=== PATIENT | female | born 1940 | race Caucasian/White ===

== ENCOUNTER 2023-05-31 09:43 | Outpatient (RCR) | payer MEDICARE, OTHER, SELFPAY ==
[2023-05-31] VITALS (9 sets, daily range): BP systolic 107–137; BP diastolic 68–83
[2023-05-31] MEDS: GAMMAGARD 200 IV (10:10)
[2023-05-31] MEDS: GAMMAGARD 300 IV (11:56)
[2023-05-31 23:35] LABS: IgG 854 mg/dl (700-1600)
== END 2023-05-31 15:50 | disposition home or self-care (01) ==
LOC: OID 09:43
PROVIDERS: ATTENDING PHYSICIAN Allergy & Immunology; FAMILY PHYSICIAN Family Medicine
DX: D83.9 Common variable immunodeficiency, unspecified (principal); D83.8 Other common variable immunodeficiencies
CPT/HCPCS: 82784; 96365; 96366; J1569

== ENCOUNTER 2023-06-28 09:51 | Outpatient (RCR) | payer MEDICARE, OTHER, SELFPAY ==
[2023-06-28] VITALS (9 sets, daily range): BP systolic 93–143; BP diastolic 54–72
[2023-06-28] MEDS: GAMMAGARD 200 IV (10:28)
[2023-06-28] MEDS: GAMMAGARD 300 IV (12:05)
[2023-06-29 00:51] LABS: IgG 872 mg/dl (700-1600)
== END 2023-06-29 09:41 | disposition home or self-care (01) ==
LOC: OID 09:51
PROVIDERS: ATTENDING PHYSICIAN Allergy & Immunology; FAMILY PHYSICIAN Family Medicine
DX: D83.8 Other common variable immunodeficiencies (principal); D83.9 Common variable immunodeficiency, unspecified
CPT/HCPCS: 82784; 96365; 96366; J1569

== ENCOUNTER 2023-07-25 10:05 | Outpatient (RCR) | payer MEDICARE, OTHER, SELFPAY ==
[2023-07-25] VITALS (9 sets, daily range): BP systolic 105–141; BP diastolic 53–93
[2023-07-25] MEDS: GAMMAGARD 200 IV (10:34)
[2023-07-25] MEDS: GAMMAGARD 300 IV (12:09)
[2023-07-26 23:39] LABS: IgG 884 mg/dl (700-1600)
== END 2023-07-26 07:52 | disposition home or self-care (01) ==
LOC: OID 10:05
PROVIDERS: ATTENDING PHYSICIAN Allergy & Immunology; FAMILY PHYSICIAN Family Medicine
DX: D83.8 Other common variable immunodeficiencies (principal); D83.9 Common variable immunodeficiency, unspecified
CPT/HCPCS: 82784; 96365; 96366; J1569

== ENCOUNTER 2023-08-22 09:46 | Outpatient (RCR) | payer MEDICARE, OTHER, SELFPAY ==
[2023-08-22] VITALS (9 sets, daily range): BP systolic 116–140; BP diastolic 69–78
[2023-08-22] MEDS: GAMMAGARD 200 IV (10:48)
[2023-08-22 10:58] LABS: % Basophils 0.7 % (0-2); % Monocytes 7.3 % (1.7-9.3); Absolute Basophils 0.1 10^3/uL (0-0.2); Absolute Eosinophils 0.2 10^3/uL (0-0.7); Absolute Lymphocytes 1.8 10^3/uL (1.2-3.4); Absolute Monocytes 0.6 10^3/uL (0.1-0.6); Hematocrit 44.4 % (37.0-47.0); Hemoglobin 15.1 g/dL (12.0-16.0); Mean Corpuscular Hgb 30.8 pg (27.0-31.0); Mean Corpuscular Volume 90.4 fL (81.0-99.0); Mean Platelet Volume 9.9 fL (7.4-10.4); Platelet Count 258 10^3/uL (130-400); Red Blood Cell Count 4.91 10^6/uL (4.20-5.40); Red Cell Dist. Width 13.6 % (11.5-14.5); White Blood Cell Count 7.6 10^3/uL (4.8-10.8)
[2023-08-22] MEDS: GAMMAGARD 300 IV (12:25)
[2023-08-22 13:13] LABS: ALT (SGPT) 14 U/L (0-35); AST (SGOT) 20 U/L (14-36); Albumin 3.3 g/dl (3.5-5.0); Alkaline Phosphatase 69 U/L (38-126); Blood Urea Nitrogen 16 mg/dl (7-17); Calcium 9.4 mg/dl (8.4-10.2); Carbon Dioxide 27 mmol/L (22-30); Chloride 104 mmol/L (98-107); Glucose 84 mg/dl (70-99); Sodium 135 mmol/L (135-145); Total Bilirubin 0.5 mg/dl (0.2-1.3); Total Protein 5.8 g/dl (6.3-8.2); eGFR > 60.00
[2023-08-22 15:05] LABS: HDL Cholesterol 63 mg/dl; LDL Cholesterol, Calculated 88 mg/dl; Total Cholesterol 166 mg/dl (50-199); Triglyceride 76 mg/dl (10-149); Very Low Density Lipoprotein 15 mg/dl (0-30)
[2023-08-24 05:41] LABS: IgG 826 mg/dl (700-1600)
== END 2023-09-14 15:12 | disposition home or self-care (01) ==
LOC: OID 09:46
PROVIDERS: ATTENDING PHYSICIAN Allergy & Immunology; FAMILY PHYSICIAN Family Medicine
DX: D83.8 Other common variable immunodeficiencies (principal); D83.9 Common variable immunodeficiency, unspecified
CPT/HCPCS: 36415; 80053; 80061; 82784; 85025; 96365; 96366; J1569

== ENCOUNTER → 2023-08-28 14:46 | Outpatient (REF) | payer MEDICARE, OTHER, SELFPAY | LOC: HWRAD 14:46 | PROVIDERS: ATTENDING PHYSICIAN Family Medicine | DX: S29.012A Strain of muscle and tendon of back wall of thorax, initial encounter (principal) | CPT/HCPCS: 72072 ==

== ENCOUNTER → 2023-08-29 10:57 | Outpatient (REF) | payer MEDICARE, OTHER, SELFPAY | LOC: HWRAD 10:57 | PROVIDERS: ATTENDING PHYSICIAN Family Medicine | DX: M85.80 Other specified disorders of bone density and structure, unspecified site (principal); M85.89 Other specified disorders of bone density and structure, multiple sites | CPT/HCPCS: 77080 ==

== ENCOUNTER → 2023-09-15 08:28 | Outpatient (REF) | payer MEDICARE, OTHER, SELFPAY | LOC: PAVMRI 08:28 | PROVIDERS: ATTENDING PHYSICIAN Family Medicine | DX: M54.50 Low back pain, unspecified (principal); M54.9 Dorsalgia, unspecified | CPT/HCPCS: 72146 ==

== ENCOUNTER 2023-09-19 09:54 | Outpatient (RCR) | payer MEDICARE, OTHER, SELFPAY ==
[2023-09-19] VITALS (9 sets, daily range): BP systolic 112–140; BP diastolic 68–82
[2023-09-19] MEDS: GAMMAGARD 200 IV (10:30)
[2023-09-19] MEDS: GAMMAGARD 300 IV (12:09)
[2023-09-21 05:55] LABS: IgG 759 mg/dl (700-1600)
== END 2023-09-20 08:37 | disposition home or self-care (01) ==
LOC: OID 09:54
PROVIDERS: ATTENDING PHYSICIAN Allergy & Immunology; FAMILY PHYSICIAN Family Medicine
DX: D83.8 Other common variable immunodeficiencies (principal); D83.9 Common variable immunodeficiency, unspecified
CPT/HCPCS: 36415; 82784; 96365; 96366; J1569

== ENCOUNTER 2023-10-17 09:50 | Outpatient (RCR) | payer MEDICARE, OTHER, SELFPAY ==
[2023-10-17] VITALS (8 sets, daily range): BP systolic 115–133; BP diastolic 58–68
[2023-10-17] MEDS: GAMMAGARD 200 IV (10:34)
[2023-10-17] MEDS: GAMMAGARD 300 IV (12:12)
[2023-10-19 01:39] LABS: IgG 703 mg/dl (700-1600)
== END 2023-11-14 10:29 | disposition home or self-care (01) ==
LOC: OID 09:50
PROVIDERS: Allergy & Immunology; ATTENDING PHYSICIAN Internal Medicine; FAMILY PHYSICIAN Family Medicine
DX: D83.8 Other common variable immunodeficiencies (principal); D83.9 Common variable immunodeficiency, unspecified
CPT/HCPCS: 36415; 82784; 96365; 96366; J1569

== ENCOUNTER 2023-12-13 09:59 | Outpatient (RCR) | payer MEDICARE, OTHER, SELFPAY ==
[2023-11-16] VITALS (9 sets, daily range): BP systolic 112–151; BP diastolic 61–80
[2023-11-16] MEDS: GAMMAGARD 300 IV (11:14)
[2023-11-16 12:19] LABS: IgG 700 mg/dl (700-1600)
[2023-11-16] MEDS: GAMMAGARD 200 IV (13:25)
[2023-12-13] VITALS (10 sets, daily range): BP systolic 117–165; BP diastolic 60–96
[2023-12-13] MEDS: GAMMAGARD 300 IV (10:24)
[2023-12-13] MEDS: GAMMAGARD 200 IV (12:38)
[2023-12-13 23:37] LABS: IgG 709 mg/dl (700-1600)
== END 2023-12-13 15:14 | disposition home or self-care (01) ==
LOC: OID 09:59
PROVIDERS: ATTENDING PHYSICIAN Internal Medicine; FAMILY PHYSICIAN Family Medicine
DX: D83.8 Other common variable immunodeficiencies (principal); D83.9 Common variable immunodeficiency, unspecified
CPT/HCPCS: 82784; 96365; 96366; J1569

== ENCOUNTER → 2023-12-20 11:00 | Outpatient (REF) | payer MEDICARE, OTHER, SELFPAY ==
[2023-12-20 11:51] LABS: % Basophils 0.7 % (0-2); % Eosinophils 4.2 % (0-6); % Immature Granulocytes 0.3 % (0-0.5); % Lymphocytes 23.8 % (20.5-51.1); % Monocytes 6.8 % (1.7-9.3); % Neutrophils 64.2 % (42.2-75.2); Absolute Basophils 0.1 10^3/uL (0-0.2); Absolute Eosinophils 0.3 10^3/uL (0-0.7); Absolute Lymphocytes 1.8 10^3/uL (1.2-3.4); Absolute Monocytes 0.5 10^3/uL (0.1-0.6); Absolute Neutrophils 4.8 10^3/uL (1.4-6.5); Hematocrit 43.1 % (37.0-47.0); Hemoglobin 14.7 g/dL (12.0-16.0); Mean Corp Hgb Conc. 34.1 g/dL (33.0-37.0); Mean Corpuscular Hgb 30.2 pg (27.0-31.0); Mean Corpuscular Volume 88.5 fL (81.0-99.0); Mean Platelet Volume 10.6 fL (7.4-10.4); Nucleated Red Blood Cells % 0 %; Platelet Count 249 10^3/uL (130-400); Red Blood Cell Count 4.87 10^6/uL (4.20-5.40); Red Cell Dist. Width 14.1 % (11.5-14.5); White Blood Cell Count 7.5 10^3/uL (4.8-10.8)
[2023-12-20 13:16] LABS: ALT (SGPT) 39 U/L (0-35); AST (SGOT) 39 U/L (14-36); Albumin 3.6 g/dl (3.5-5.0); Alkaline Phosphatase 92 U/L (38-126); Blood Urea Nitrogen 14 mg/dl (7-17); Calcium 9.4 mg/dl (8.4-10.2); Carbon Dioxide 27 mmol/L (22-30); Chloride 101 mmol/L (98-107); Glucose 86 mg/dl (70-99); Phosphorus 3.8 mg/dl (2.5-4.5); Potassium 4.3 mmol/L (3.5-5.1); Sodium 141 mmol/L (135-145); Total Bilirubin 0.7 mg/dl (0.2-1.3); Total Protein 6.3 g/dl (6.3-8.2); eGFR > 60.00
[2023-12-20 13:35] LABS: Vitamin D, 25-OH*** 87.3 ng/mL (30-80)
[2023-12-20 13:49] LABS: Cortisol, Random 9.1 ug/dl; TSH 0.55 uIU/ml (0.47-4.68)
[2023-12-21 02:40] LABS: IgA 176 mg/dl (70-400)
[2023-12-21 21:20] LABS: CTx 668 pg/mL
[2023-12-22 08:20] LABS: Endomysial IgA Antibody Titer <1:10 (<1:10)
[2023-12-23 01:07] LABS: Albumin 3.38 g/dL (3.75-5.01); Alpha 1 Globulin 0.32 g/dL (0.19-0.46); Alpha 2 Globulin 0.59 g/dL (0.48-1.05); SPEP IFE Reflex Not Done; Total Protein-Electrophoresis 6.3 g/dL (6.3-8.2)
== END ==
LOC: REG 11:00
PROVIDERS: ATTENDING PHYSICIAN Physician Assistant; FAMILY PHYSICIAN Family Medicine
DX: C90.00 Multiple myeloma not having achieved remission (principal); E03.9 Hypothyroidism, unspecified; E21.5 Disorder of parathyroid gland, unspecified; E24.9 Cushing's syndrome, unspecified; K90.0 Celiac disease; M81.0 Age-related osteoporosis without current pathological fracture; R82.994 Hypercalciuria
CPT/HCPCS: 36415; 80053; 82306; 82523; 82533; 82784; 83516; 83970; 84100; 84155; 84165; 84443; 85025; 86231

== ENCOUNTER → 2023-12-23 08:15 | Outpatient (REF) | payer MEDICARE, OTHER, SELFPAY ==
[2023-12-23 11:18] LABS: 24 Hour Urine Total Volume 700 ml
[2023-12-23 11:26] LABS: 24 Hour Urine Calcium 111.3 mg/day; Urine Calcium 15.9 mg/dl
== END ==
LOC: REG 08:15
PROVIDERS: ATTENDING PHYSICIAN Physician Assistant; FAMILY PHYSICIAN Family Medicine
DX: C90.00 Multiple myeloma not having achieved remission (principal); E03.9 Hypothyroidism, unspecified; E21.5 Disorder of parathyroid gland, unspecified; E24.9 Cushing's syndrome, unspecified; K90.0 Celiac disease
CPT/HCPCS: 81050; 82340

== ENCOUNTER 2024-01-10 09:48 | Outpatient (RCR) | payer MEDICARE, OTHER, SELFPAY ==
[2024-01-10] VITALS (10 sets, daily range): BP systolic 119–143; BP diastolic 53–84
[2024-01-10] MEDS: GAMMAGARD 300 IV (10:19)
[2024-01-10] MEDS: GAMMAGARD 200 IV (12:31)
[2024-01-10 12:51] LABS: ALT (SGPT) 22 U/L (0-35); AST (SGOT) 21 U/L (14-36); Albumin 3.1 g/dl (3.5-5.0); Alkaline Phosphatase 67 U/L (38-126); Blood Urea Nitrogen 13 mg/dl (7-17); Calcium 8.7 mg/dl (8.4-10.2); Carbon Dioxide 28 mmol/L (22-30); Chloride 102 mmol/L (98-107); Glucose 92 mg/dl (70-99); Potassium 4.5 mmol/L (3.5-5.1); Sodium 137 mmol/L (135-145); Total Bilirubin 0.5 mg/dl (0.2-1.3); Total Protein 5.9 g/dl (6.3-8.2); eGFR > 60.00
[2024-01-10 23:43] LABS: IgG 683 mg/dl (700-1600)
== END 2024-01-10 13:36 | disposition home or self-care (01) ==
LOC: OID 09:48
PROVIDERS: ATTENDING PHYSICIAN Internal Medicine; FAMILY PHYSICIAN Family Medicine; OTHER PHYSICIAN Internal Medicine
DX: D83.8 Other common variable immunodeficiencies (principal); D83.9 Common variable immunodeficiency, unspecified
CPT/HCPCS: 80053; 82784; 96365; 96366; J1569

== ENCOUNTER 2024-02-07 10:03 | Outpatient (RCR) | payer MEDICARE, OTHER, SELFPAY ==
[2024-02-07] VITALS (10 sets, daily range): BP systolic 119–132; BP diastolic 67–82
[2024-02-07] MEDS: GAMMAGARD 50 IV (10:35)
[2024-02-07] MEDS: GAMMAGARD 200 IV (11:12)
[2024-02-07] MEDS: GAMMAGARD 300 IV (12:36)
== END 2024-02-08 09:08 | disposition home or self-care (01) ==
LOC: OID 10:03
PROVIDERS: ATTENDING PHYSICIAN Internal Medicine; FAMILY PHYSICIAN Family Medicine; OTHER PHYSICIAN Internal Medicine
DX: D83.8 Other common variable immunodeficiencies (principal); D83.9 Common variable immunodeficiency, unspecified
CPT/HCPCS: 96365; 96366; J1569

== ENCOUNTER 2024-03-06 09:59 | Outpatient (RCR) | payer MEDICARE, OTHER, SELFPAY ==
[2024-03-06] VITALS (9 sets, daily range): BP systolic 101–152; BP diastolic 61–89
[2024-03-06] MEDS: GAMMAGARD 50 IV (10:31)
[2024-03-06] MEDS: GAMMAGARD 200 IV (11:13)
[2024-03-06] MEDS: GAMMAGARD 300 IV (12:33)
== END 2024-03-07 09:18 | disposition home or self-care (01) ==
LOC: OID 09:59
PROVIDERS: ATTENDING PHYSICIAN Internal Medicine; FAMILY PHYSICIAN Family Medicine; OTHER PHYSICIAN Internal Medicine
DX: D83.8 Other common variable immunodeficiencies (principal); D83.9 Common variable immunodeficiency, unspecified
CPT/HCPCS: 96365; 96366; J1569

== ENCOUNTER 2024-04-03 09:41 | Outpatient (RCR) | payer MEDICARE, OTHER, SELFPAY ==
[2024-04-03] VITALS (9 sets, daily range): BP systolic 106–139; BP diastolic 56–82
[2024-04-03] MEDS: GAMMAGARD 50 IV (10:07)
[2024-04-03] MEDS: GAMMAGARD 200 IV (10:47)
[2024-04-03] MEDS: GAMMAGARD 300 IV (12:06)
== END 2024-04-04 11:23 | disposition home or self-care (01) ==
LOC: OID 09:41
PROVIDERS: ATTENDING PHYSICIAN Internal Medicine; FAMILY PHYSICIAN Family Medicine; OTHER PHYSICIAN Internal Medicine
DX: D83.8 Other common variable immunodeficiencies (principal); D83.9 Common variable immunodeficiency, unspecified
CPT/HCPCS: 96365; 96366; J1569

== ENCOUNTER 2024-05-01 09:57 | Outpatient (RCR) | payer MEDICARE, OTHER, SELFPAY ==
[2024-05-01] VITALS (10 sets, daily range): BP systolic 114–152; BP diastolic 62–83
[2024-05-01 10:23] LABS: % Basophils 0.6 % (0-2); % Eosinophils 5.1 % (0-6); % Lymphocytes 30.8 % (20.5-51.1); % Monocytes 9.3 % (1.7-9.3); % Neutrophils 54.2 % (42.2-75.2); Absolute Eosinophils 0.4 10^3/uL (0-0.7); Absolute Lymphocytes 2.2 10^3/uL (1.2-3.4); Absolute Monocytes 0.7 10^3/uL (0.1-0.6); Absolute Neutrophils 3.8 10^3/uL (1.4-6.5); Hematocrit 46.7 % (37.0-47.0); Hemoglobin 15.4 g/dL (12.0-16.0); Mean Corpuscular Hgb 29.8 pg (27.0-31.0); Mean Corpuscular Volume 90.3 fL (81.0-99.0); Mean Platelet Volume 9.9 fL (7.4-10.4); Platelet Count 254 10^3/uL (130-400); Red Blood Cell Count 5.17 10^6/uL (4.20-5.40); Red Cell Dist. Width 14.4 % (11.5-14.5); White Blood Cell Count 7.1 10^3/uL (4.8-10.8)
[2024-05-01] MEDS: GAMMAGARD 50 IV (10:26)
[2024-05-01] MEDS: GAMMAGARD 200 IV (11:03)
[2024-05-01 11:14] LABS: ALT (SGPT) 17 U/L (0-35); AST (SGOT) 21 U/L (14-36); Albumin 3.3 g/dl (3.5-5.0); Alkaline Phosphatase 76 U/L (38-126); Blood Urea Nitrogen 16 mg/dl (7-17); Calcium 9.1 mg/dl (8.4-10.2); Carbon Dioxide 31 mmol/L (22-30); Chloride 101 mmol/L (98-107); Glucose 86 mg/dl (70-99); Potassium 4.1 mmol/L (3.5-5.1); Sodium 136 mmol/L (135-145); Total Bilirubin 0.7 mg/dl (0.2-1.3); Total Protein 5.6 g/dl (6.3-8.2); eGFR > 60.00
[2024-05-01] MEDS: GAMMAGARD 300 IV (12:27)
[2024-05-01 23:39] LABS: IgG 802 mg/dl (700-1600)
== END 2024-05-02 11:04 | disposition home or self-care (01) ==
LOC: OID 09:57
PROVIDERS: ATTENDING PHYSICIAN Internal Medicine; FAMILY PHYSICIAN Family Medicine; OTHER PHYSICIAN Internal Medicine
DX: D83.8 Other common variable immunodeficiencies (principal); D83.9 Common variable immunodeficiency, unspecified
CPT/HCPCS: 80053; 82784; 85025; 96365; 96366; J1569

== ENCOUNTER 2024-05-29 09:55 | Outpatient (RCR) | payer MEDICARE, OTHER, SELFPAY ==
[2024-05-29] VITALS (10 sets, daily range): BP systolic 110–139; BP diastolic 63–80
[2024-05-29] MEDS: GAMMAGARD 50 IV (10:25)
[2024-05-29] MEDS: GAMMAGARD 200 IV (11:04)
[2024-05-29] MEDS: GAMMAGARD 300 IV (12:27)
== END 2024-05-30 10:01 | disposition home or self-care (01) ==
LOC: OID 09:55
PROVIDERS: ATTENDING PHYSICIAN Internal Medicine; FAMILY PHYSICIAN Family Medicine; OTHER PHYSICIAN Internal Medicine
DX: D83.8 Other common variable immunodeficiencies (principal); D83.9 Common variable immunodeficiency, unspecified
CPT/HCPCS: 96365; 96366; J1569

== ENCOUNTER 2024-06-26 10:39 | Outpatient (RCR) | payer MEDICARE, OTHER, SELFPAY ==
[2024-06-26] VITALS (10 sets, daily range): BP systolic 114–155; BP diastolic 41–79
[2024-06-26] MEDS: GAMMAGARD 50 IV (11:01)
[2024-06-26] MEDS: GAMMAGARD 200 IV (11:40)
[2024-06-26] MEDS: GAMMAGARD 300 IV (13:02)
== END 2024-06-27 12:19 | disposition home or self-care (01) ==
LOC: OID 10:39
PROVIDERS: ATTENDING PHYSICIAN Internal Medicine; FAMILY PHYSICIAN Family Medicine; OTHER PHYSICIAN Internal Medicine
DX: D83.8 Other common variable immunodeficiencies (principal); D83.9 Common variable immunodeficiency, unspecified
CPT/HCPCS: 96365; 96366; J1569

== ENCOUNTER 2024-07-24 10:47 | Outpatient (RCR) | payer MEDICARE, OTHER, SELFPAY ==
[2024-07-24] VITALS (9 sets, daily range): BP systolic 127–148; BP diastolic 64–88
[2024-07-24] MEDS: GAMMAGARD 50 IV (11:27)
[2024-07-24] MEDS: GAMMAGARD 200 IV (12:04)
[2024-07-24] MEDS: GAMMAGARD 300 IV (13:27)
== END 2024-07-25 09:55 | disposition home or self-care (01) ==
LOC: OID 10:47
PROVIDERS: ATTENDING PHYSICIAN Internal Medicine; FAMILY PHYSICIAN Family Medicine; OTHER PHYSICIAN Internal Medicine
DX: D83.8 Other common variable immunodeficiencies (principal); D83.9 Common variable immunodeficiency, unspecified
CPT/HCPCS: 96365; 96366; J1569

== ENCOUNTER 2024-08-21 10:48 | Outpatient (RCR) | payer MEDICARE, OTHER, SELFPAY ==
[2024-08-21] VITALS (9 sets, daily range): BP systolic 122–155; BP diastolic 59–78
[2024-08-21] MEDS: GAMMAGARD 50 IV (11:27)
[2024-08-21] MEDS: GAMMAGARD 200 IV (12:03)
[2024-08-21 12:26] LABS: % Basophils 0.5 % (0-2); % Eosinophils 6.7 % (0-6); % Immature Granulocytes 0.2 % (0-0.5); % Lymphocytes 27.1 % (20.5-51.1); % Monocytes 8.1 % (1.7-9.3); % Neutrophils 57.4 % (42.2-75.2); Absolute Eosinophils 0.5 10^3/uL (0-0.7); Absolute Lymphocytes 2.2 10^3/uL (1.2-3.4); Absolute Monocytes 0.7 10^3/uL (0.1-0.6); Absolute Neutrophils 4.7 10^3/uL (1.4-6.5); Hemoglobin 15.4 g/dL (12.0-16.0); Mean Corp Hgb Conc. 33.5 g/dL (33.0-37.0); Mean Corpuscular Volume 92.6 fL (81.0-99.0); Mean Platelet Volume 10.9 fL (7.4-10.4); Nucleated Red Blood Cells % 0 %; Platelet Count 265 10^3/uL (130-400); Red Blood Cell Count 4.97 10^6/uL (4.20-5.40); Red Cell Dist. Width 14.1 % (11.5-14.5); White Blood Cell Count 8.1 10^3/uL (4.8-10.8)
[2024-08-21 12:53] LABS: ALT (SGPT) 18 U/L (0-35); AST (SGOT) 22 U/L (14-36); Albumin 3.5 g/dl (3.5-5.0); Alkaline Phosphatase 59 U/L (38-126); Blood Urea Nitrogen 10 mg/dl (7-17); Calcium 9.1 mg/dl (8.4-10.2); Carbon Dioxide 27 mmol/L (22-30); Chloride 103 mmol/L (98-107); Glucose 80 mg/dl (70-99); Potassium 4.4 mmol/L (3.5-5.1); Sodium 138 mmol/L (135-145); Total Bilirubin 0.7 mg/dl (0.2-1.3); Total Protein 5.8 g/dl (6.3-8.2); eGFR > 60.00
[2024-08-21] MEDS: GAMMAGARD 300 IV (13:30)
[2024-08-22 00:08] LABS: IgG 801 mg/dl (700-1600)
== END 2024-08-22 09:41 | disposition home or self-care (01) ==
LOC: OID 10:48
PROVIDERS: ATTENDING PHYSICIAN Internal Medicine; FAMILY PHYSICIAN Family Medicine; OTHER PHYSICIAN Internal Medicine
DX: D83.8 Other common variable immunodeficiencies (principal); D83.9 Common variable immunodeficiency, unspecified
CPT/HCPCS: 36415; 80053; 82784; 85025; 96365; 96366; J1569

== ENCOUNTER 2024-09-18 10:01 | Outpatient (RCR) | payer MEDICARE, OTHER, SELFPAY ==
[2024-09-18] VITALS (9 sets, daily range): BP systolic 95–140; BP diastolic 64–71
[2024-09-18] MEDS: GAMMAGARD 50 IV (10:25)
[2024-09-18] MEDS: GAMMAGARD 200 IV (11:05)
[2024-09-18] MEDS: GAMMAGARD 300 IV (12:26)
== END 2024-09-19 09:22 | disposition home or self-care (01) ==
LOC: OID 10:01
PROVIDERS: ATTENDING PHYSICIAN Internal Medicine; FAMILY PHYSICIAN Family Medicine; OTHER PHYSICIAN Internal Medicine
DX: D83.8 Other common variable immunodeficiencies (principal); D83.9 Common variable immunodeficiency, unspecified
CPT/HCPCS: 96365; 96366; J1569

== ENCOUNTER 2024-11-13 09:24 | Outpatient (RCR) | payer MEDICARE, OTHER, SELFPAY ==
[2024-10-16] VITALS (10 sets, daily range): BP systolic 99–133; BP diastolic 60–73
[2024-10-16] MEDS: GAMMAGARD 50 IV (10:20)
[2024-10-16] MEDS: GAMMAGARD 200 IV (10:57)
[2024-10-16] MEDS: GAMMAGARD 300 IV (12:27)
[2024-11-13] VITALS (9 sets, daily range): BP systolic 109–143; BP diastolic 70–83
[2024-11-13] MEDS: GAMMAGARD 50 IV (10:29)
[2024-11-13] MEDS: GAMMAGARD 200 IV (11:07)
[2024-11-13] MEDS: GAMMAGARD 300 IV (12:27)
== END 2024-11-14 23:59 | disposition home or self-care (01) ==
LOC: OID 09:24
PROVIDERS: ATTENDING PHYSICIAN Internal Medicine; FAMILY PHYSICIAN Family Medicine; OTHER PHYSICIAN Internal Medicine
DX: D83.8 Other common variable immunodeficiencies (principal); D83.9 Common variable immunodeficiency, unspecified; M48.50XS Collapsed vertebra, not elsewhere classified, site unspecified, sequela of fracture
CPT/HCPCS: 96365; 96366; J1569

== ENCOUNTER 2024-12-11 09:56 | Outpatient (RCR) | payer MEDICARE, OTHER, SELFPAY ==
[2024-12-11] VITALS (10 sets, daily range): BP systolic 120–146; BP diastolic 66–87
[2024-12-11] MEDS: GAMMAGARD 50 IV (10:35)
[2024-12-11] MEDS: GAMMAGARD 200 IV (11:09)
[2024-12-11 11:38] LABS: Hematocrit 44.5 % (37.0-47.0); Hemoglobin 14.9 g/dL (12.0-16.0); Mean Corp Hgb Conc. 33.5 g/dL (33.0-37.0); Mean Corpuscular Volume 92.3 fL (81.0-99.0); Nucleated Red Blood Cells % 0 %; Platelet Count 229 10^3/uL (130-400); Red Cell Dist. Width 13.7 % (11.5-14.5)
[2024-12-11 12:19] LABS: ALT (SGPT) 18 U/L (0-35); AST (SGOT) 22 U/L (14-36); Albumin 3.5 g/dl (3.5-5.0); Alkaline Phosphatase 52 U/L (38-126); Blood Urea Nitrogen 12 mg/dl (7-17); Calcium 9.1 mg/dl (8.4-10.2); Carbon Dioxide 28 mmol/L (22-30); Chloride 105 mmol/L (98-107); Glucose 74 mg/dl (70-99); Potassium 4.4 mmol/L (3.5-5.1); Sodium 137 mmol/L (135-145); Total Protein 5.7 g/dl (6.3-8.2); eGFR > 60.00
[2024-12-11] MEDS: GAMMAGARD 300 IV (12:31)
== END 2024-12-12 11:41 | disposition home or self-care (01) ==
LOC: OID 09:56
PROVIDERS: ATTENDING PHYSICIAN Internal Medicine; FAMILY PHYSICIAN Family Medicine; OTHER PHYSICIAN Internal Medicine
DX: D83.8 Other common variable immunodeficiencies (principal); D83.9 Common variable immunodeficiency, unspecified; M48.50XS Collapsed vertebra, not elsewhere classified, site unspecified, sequela of fracture
CPT/HCPCS: 36415; 80053; 82784; 85025; 96365; 96366; J1569

== ENCOUNTER → 2024-12-19 09:17 | Outpatient (REF) | payer MEDICARE, OTHER, SELFPAY ==
[2024-12-19 11:14] LABS: Glycohemoglobin (HgbA1c) 5.5 % (4.0-5.6)
== END ==
LOC: REG 09:17
PROVIDERS: ATTENDING PHYSICIAN Family Medicine
DX: R73.09 Other abnormal glucose (principal)
CPT/HCPCS: 36415; 83036

== ENCOUNTER 2025-01-08 09:11 | Outpatient (RCR) | payer MEDICARE, OTHER, SELFPAY ==
[2025-01-08] VITALS (10 sets, daily range): BP systolic 117–133; BP diastolic 60–73
[2025-01-08] MEDS: GAMMAGARD 50 IV (10:09)
[2025-01-08] MEDS: GAMMAGARD 200 IV (10:49)
[2025-01-08] MEDS: GAMMAGARD 300 IV (12:10)
== END 2025-01-09 13:06 | disposition home or self-care (01) ==
LOC: OID 09:11
PROVIDERS: ATTENDING PHYSICIAN Internal Medicine; FAMILY PHYSICIAN Family Medicine; OTHER PHYSICIAN Internal Medicine
DX: D83.8 Other common variable immunodeficiencies (principal); D83.9 Common variable immunodeficiency, unspecified; M48.50XS Collapsed vertebra, not elsewhere classified, site unspecified, sequela of fracture
CPT/HCPCS: 96365; 96366; J1569

== ENCOUNTER → 2025-01-15 10:59 | Outpatient (REF) | payer MEDICARE, OTHER, SELFPAY | LOC: RAD 10:59 | PROVIDERS: ATTENDING PHYSICIAN Family Medicine | DX: R25.2 Cramp and spasm (principal); I87.2 Venous insufficiency (chronic) (peripheral) | CPT/HCPCS: 93971 ==

== ENCOUNTER 2025-02-05 09:55 | Outpatient (RCR) | payer MEDICARE, OTHER, SELFPAY ==
[2025-02-05] VITALS (9 sets, daily range): BP systolic 127–147; BP diastolic 36–88
[2025-02-05] MEDS: CLARITIN 10 MG PO (10:17)
[2025-02-05] MEDS: TYLENOL 650 MG PO (10:17)
[2025-02-05] MEDS: GAMMAGARD 50 IV (10:18)
[2025-02-05] MEDS: GAMMAGARD 200 IV (10:54)
[2025-02-05] MEDS: GAMMAGARD 300 IV (12:14)
== END 2025-02-06 10:09 | disposition home or self-care (01) ==
LOC: OID 09:55
PROVIDERS: ATTENDING PHYSICIAN Internal Medicine; FAMILY PHYSICIAN Family Medicine; OTHER PHYSICIAN Internal Medicine
DX: D83.8 Other common variable immunodeficiencies (principal); M48.50XS Collapsed vertebra, not elsewhere classified, site unspecified, sequela of fracture
CPT/HCPCS: 96365; 96366; J1569

== ENCOUNTER 2025-03-05 10:05 | Outpatient (RCR) | payer MEDICARE, OTHER, SELFPAY ==
[2025-03-05] VITALS (9 sets, daily range): BP systolic 120–152; BP diastolic 60–78
[2025-03-05] MEDS: GAMMAGARD 50 IV (10:34)
[2025-03-05] MEDS: GAMMAGARD 200 IV (11:14)
[2025-03-05] MEDS: GAMMAGARD 300 IV (12:32)
== END 2025-03-06 12:19 | disposition home or self-care (01) ==
LOC: OID 10:05
PROVIDERS: ATTENDING PHYSICIAN Internal Medicine; FAMILY PHYSICIAN Family Medicine; OTHER PHYSICIAN Internal Medicine
DX: D83.8 Other common variable immunodeficiencies (principal); D83.9 Common variable immunodeficiency, unspecified; M48.50XS Collapsed vertebra, not elsewhere classified, site unspecified, sequela of fracture
CPT/HCPCS: 96365; 96366; J1569

== ENCOUNTER 2025-04-02 10:06 | Outpatient (RCR) | payer MEDICARE, OTHER, SELFPAY ==
[2025-04-02] VITALS (10 sets, daily range): BP systolic 114–158; BP diastolic 64–86
[2025-04-02] MEDS: GAMMAGARD 50 IV (10:42)
[2025-04-02 10:44] LABS: Hematocrit 49.0 % (37.0-47.0); Hemoglobin 15.9 g/dL (12.0-16.0); Mean Corp Hgb Conc. 32.4 g/dL (33.0-37.0); Mean Corpuscular Volume 94.2 fL (81.0-99.0); Platelet Count 246 10^3/uL (130-400); Red Cell Dist. Width 13.8 % (11.5-14.5)
[2025-04-02] MEDS: GAMMAGARD 200 IV (11:24)
[2025-04-02 11:40] LABS: ALT (SGPT) 15 U/L (0-35); AST (SGOT) 21 U/L (14-36); Albumin 3.6 g/dl (3.5-5.0); Alkaline Phosphatase 60 U/L (38-126); Blood Urea Nitrogen 6 mg/dl (7-17); Calcium 8.9 mg/dl (8.4-10.2); Carbon Dioxide 29 mmol/L (22-30); Chloride 102 mmol/L (98-107); Glucose 76 mg/dl (70-99); Potassium 3.8 mmol/L (3.5-5.1); Sodium 136 mmol/L (135-145); Total Protein 6.2 g/dl (6.3-8.2); eGFR > 60.00
[2025-04-02] MEDS: GAMMAGARD 300 IV (12:46)
== END 2025-04-03 10:20 | disposition home or self-care (01) ==
LOC: OID 10:06
PROVIDERS: ATTENDING PHYSICIAN Internal Medicine; FAMILY PHYSICIAN Family Medicine; OTHER PHYSICIAN Internal Medicine
DX: D83.8 Other common variable immunodeficiencies (principal); D83.9 Common variable immunodeficiency, unspecified; M48.50XS Collapsed vertebra, not elsewhere classified, site unspecified, sequela of fracture
CPT/HCPCS: 36415; 80053; 82784; 85025; 96365; 96366; J1569